=== PATIENT | male | born 1940 | race Caucasian/White ===

== ENCOUNTER → 2017-02-14 | Outpatient (CLI) | payer MEDICARE, BC ==
[~2017-02-14] MED LIST: ALBU8.5H8 INH; ASPI-621 PO; BUDE10.2 INH; FLUN25SP NAS; HYDR-3245 PO; LEVO75TA5 PO; LISI1TAB5 PO; PANT40TA5 PO; RIZA10TA5 PO; TAMS0.4C2 PO; TOPI100T8 PO; TROS20TA2 PO
[2017-02-14 12:10] LABS: HEMOGLOBIN 15.3 g/dL (13.7-18.0); WHITE BLOOD COUNT 6.7 x10^3/uL (3.4-10)
[2017-02-14 12:23] LABS: BLOOD UREA NITROGEN 16 mg/dL (7-18)
[2017-02-14 12:27] LABS: ASPARTATE AMINO TRANSFERASE 24 U/L (15-37)
== END | disposition home or self-care (01) ==
LOC: STAR 10:35
PROVIDERS: ATTEND Neurological Surgery
DX: Z01.818 Encounter for other preprocedural examination (principal); E65 Localized adiposity; M51.36 Other intervertebral disc degeneration, lumbar region; R94.31 Abnormal electrocardiogram [ECG] [EKG]; R79.1 Abnormal coagulation profile
CPT/HCPCS: 36415; 71020; 80053; 81003; 85025; 85610; 85730; 93005

== ENCOUNTER 2017-02-23 11:34 | Inpatient (IN) | payer MEDICARE, BC ==
[~2017-02-23] VITALS: Ht 172.7 cm; Wt 103.0 kg
[~2017-02-23 11:34] MED LIST changes: +BACITRACIN 50,000 UNIT ONE; +BUPIVACAINE 0.25% ONE; +BUPIVACAINE/PF 0.5% ONE; +EPINEPHRINE 1 MG/ML, 1ML ONE; +LIDOCAINE/PF 1%, 30ML ONE; +THROMBIN 5,000 UNIT VIAL TP ONE
[2017-02-23] MEDS ORDERED: LACTATED RINGERS 1,000 ML IV SCH (12:04)
[2017-02-23] MEDS ORDERED: VANCOMYCIN 1,000 MG ONE (12:08)
[2017-02-23 12:09] VITALS: BP 160/83
[2017-02-23] MEDS ORDERED: FENTANYL PF 250 MCG/5ML ONE ×2 (15:02→16:19)
[2017-02-23] MEDS ORDERED: MIDAZOLAM 1 MG/ML, 2ML ONE (15:02)
[2017-02-23] MEDS ORDERED: SUCCINYLCHOLINE 20 MG/ML, 10ML ONE (15:07)
[2017-02-23] MEDS ORDERED: ONDANSETRON 2MG/ML, 2ML ONE (15:07)
[2017-02-23] MEDS ORDERED: ROCURONIUM 10 MG/ML,10ML ONE (15:07)
[2017-02-23] MEDS ORDERED: DEXAMETHASONE 4 MG/ML, 1ML ONE (15:07)
[2017-02-23] MEDS ORDERED: PROPOFOL 10 MG/ML, 20ML ONE (15:07)
[2017-02-23] MEDS ORDERED: PIPERACILLIN/TAZO/PMX 3.375GM 50 ML ONE (15:24)
[2017-02-23] MEDS ORDERED: OXYcodone 5 MG/5 ML ORAL.SOL UDC PO PRN (16:30)
[2017-02-23] MEDS ORDERED: HYDROmorphone 1 MG/ML, 1ML IV PRN (16:30)
[2017-02-23] MEDS ORDERED: LABETALOL 5MG/ML, 20ML IV PRN (16:30)
[2017-02-23] MEDS ORDERED: MEPERIDINE/PF 25MG/0.5ML IVPush PRN (16:30)
[2017-02-23] MEDS ORDERED: ACETAMINOPHEN 325 MG TABLET PO PRN (16:30)
[2017-02-23] MEDS ORDERED: ONDANSETRON 2MG/ML, 2ML IVPush PRN ×2 (16:30→17:00)
[2017-02-23] MEDS ORDERED: PROMETHAZINE 25 MG/ML, 1ML IV PRN (16:30)
[2017-02-23] MEDS ORDERED: RIZATRIPTAN BENZOATE 10 MG PO PRN (16:30)
[2017-02-23] MEDS ORDERED: MIDAZOLAM 1 MG/ML, 2ML IV PRN (16:30)
[2017-02-23] MEDS ORDERED: hydrALAzine 20 MG/ML, 1ML IV PRN (16:30)
[2017-02-23] MEDS ORDERED: ALBUTEROL SULFATE 2.5 MG/3 ML NPPB PRN (16:30)
[2017-02-23] MEDS ORDERED: ACETAMINOPHEN 650 MG/20.3 ML UDC ONE (16:44)
[2017-02-23] MEDS ORDERED: FENTANYL PF 100 MCG/2ML ONE (16:44)
[2017-02-23] MEDS ORDERED: OXYcodone 5 MG/5 ML ORAL.SOL UDC ONE (16:44)
[2017-02-23] MEDS ORDERED: ACETAMINOPHEN 325 MG TABLET ONE (16:44)
[2017-02-23] MEDS: FENTANYL PF 100 MCG/2ML IV PRN ×2 (16:45→16:55)
[2017-02-23] MEDS ORDERED: OXYcodone/APAP 5/325MG TABLET PO PRN (17:00)
[2017-02-23] MEDS ORDERED: DIPHENHYDRAMINE 50 MG CAPSULE PO PRN (17:00)
[2017-02-23] MEDS ORDERED: HYDROmorphone 1 MG/ML, 1ML IVPush PRN (17:00)
[2017-02-23] MEDS ORDERED: BISACODYL 10 MG SUPP PR PRN (17:00)
[2017-02-23] MEDS ORDERED: PHARMACY MAY ADJ FOR RENAL FX MC PRN ×2 (17:00)
[2017-02-23] MEDS ORDERED: MELATONIN 3 MG TABLET PO PRN (17:00)
[2017-02-23] MEDS ORDERED: MAGNESIUM HYDROXIDE 8%, 30ML UDC PO PRN (17:00)
[2017-02-23] MEDS ORDERED: PROMETHAZINE 25 MG/ML, 1ML IM PRN (17:00)
[2017-02-23] MEDS ORDERED: HYDROcodone/APAP 5/325 TABLET PO PRN (17:00)
[2017-02-23] MEDS ORDERED: SENNA/DOCUSATE TABLET PO PRN (17:00)
[2017-02-23] MEDS ORDERED: METHOCARBAMOL 750 MG TABLET PO PRN (17:00)
[2017-02-23] MEDS ORDERED: DIPHENHYDRAMINE 50 MG/ML, 1ML IVPush PRN (17:00)
[2017-02-23] MEDS ORDERED: HYDROmorphone 2 MG/ML, 1ML ONE (17:15)
[2017-02-23] MEDS: HYDROcodone/APAP 10/325 MG TABLET PO PRN ×2 (18:30→23:28)
[2017-02-23 19:05] VITALS: BP 134/78
[2017-02-23] MEDS: CEFAZOLIN PMX 1GM/50ML 50 ML IVPB SCH (20:04)
[2017-02-23] MEDS: NS + 20MEQ KCL 1,000 ML IV SCH (20:04)
[2017-02-23] MEDS: SODIUM CHLORIDE FLUSH 10ML SYR IVF SCH (21:00)
[2017-02-23] MEDS: FLUNISOLIDE NAS SCH (21:00)
[2017-02-23] MEDS: TOPIRAMATE 100 MG TABLET PO SCH (23:28)
[2017-02-24 00:19] VITALS: BP 111/63
[2017-02-24] MEDS: CEFAZOLIN PMX 1GM/50ML 50 ML IVPB SCH (03:34)
[2017-02-24] MEDS: HYDROcodone/APAP 10/325 MG TABLET PO PRN ×3 (03:41→13:14)
[2017-02-24 04:47] VITALS: BP 126/64
[2017-02-24] MEDS: NS + 20MEQ KCL 1,000 ML IV SCH (05:30)
[2017-02-24 05:44] LABS: BASOPHILS # (AUTO) 0.02 x10^3/uL (0-0.1); BASOPHILS % (AUTO) 0 % (0-1); EOSINOPHILS # (AUTO) 0.01 x10^3/uL (0-0.4); EOSINOPHILS % (AUTO) 0 % (1-7); LYMPHOCYTES # (AUTO) 1.64 x10^3/uL (1-3.4); LYMPHOCYTES % (AUTO) 15 % (22-44); MD NO; MEAN CORPUSCULAR HEMOGLOBIN 32.4 pg (27.5-34.5); MEAN CORPUSCULAR HGB CONC 33.7 g/dL (33.2-36.2); MEAN CORPUSCULAR VOLUME 96.2 fL (81-97); MEAN PLATELET VOLUME 7.4 fL (7.4-10.4); MONOCYTES # (AUTO) 1.07 x10^3/uL (0.2-0.8); MONOCYTES % (AUTO) 10 % (2-9); NEUTROPHILS # (AUTO) 8.23 x10^3/uL (1.8-6.8); NEUTROPHILS % (AUTO) 75 % (42-75); PLATELET COUNT 222 x10^3/uL (130-400); RED BLOOD COUNT 3.91 x10^6/uL (4.38-5.82); RED CELL DISTRIBUTION WIDTH 13.9 % (9.4-14.8)
[2017-02-24 05:51] LABS: ANION GAP 7 mmol/L (5-15); CALCIUM 8.7 mg/dL (8.5-10.1); CHLORIDE 108 mmol/L (98-107); CREATININE 0.92 mg/dL (0.7-1.3)
[2017-02-24 07:00] VITALS: BP 122/62
[2017-02-24] MEDS ORDERED: LISINOPRIL 20 MG TABLET PO SCH (09:00)
[2017-02-24] MEDS ORDERED: TEMPLATE NON-FORMULARY MED. (Trospium Chloride 20 MG) PO SCH (09:00)
[2017-02-24] MEDS ORDERED: LEVOTHYROXINE 75 MCG TABLET PO SCH (09:00)
[2017-02-24] MEDS ORDERED: PANTOPROZOLE 40MG TABLET PO SCH (09:00)
[2017-02-24] MEDS ORDERED: TAMSULOSIN 0.4 MG CAP.ER.24H PO SCH (09:00)
[2017-02-24] MEDS ORDERED: HYDROCHLOROTHIAZIDE 12.5 MG CAPSULE PO SCH (09:00)
[2017-02-24] MEDS ORDERED: TEMPLATE NON-FORMULARY MED. (Budesonide/Formoterol Fumarate (Symbicort 160-4.5 Mcg Inhaler INH SCH (09:00)
[2017-02-24] MEDS: FLUNISOLIDE NAS SCH (09:00)
[2017-02-24] MEDS: TOPIRAMATE 100 MG TABLET PO SCH (09:07)
[2017-02-24] MEDS: SODIUM CHLORIDE FLUSH 10ML SYR IVF SCH (09:10)
[2017-02-24] MEDS ORDERED: HYDR-3307 PO (09:22)
[2017-02-24] MEDS ORDERED: DOXY100T PO (09:23)
[2017-02-24] MEDS ORDERED: METH750T87 PO (09:23)
[2017-02-24 14:08] VITALS: BP 117/76
[2017-02-24] MEDS ORDERED: SENN1TAB7 PO (14:21)
[2017-02-24] MEDS ORDERED: ENOXAPARIN 30 MG/0.3 ML SQ SCH (17:00)
== END 2017-02-24 14:42 | disposition home or self-care (01) | DRG 516 ==
LOC: OUT 11:34 → ORIP 16:32 → 4NOR 17:39 → DCLOUNGE 02-24 14:17
PROVIDERS: ADMIT Neurological Surgery; ATTEND Neurological Surgery
PROC: 01NB0ZZ Release Lumbar Nerve, Open Approach (ICD-10-PCS; principal; 2017-02-23 14:00)
DX: M48.062 Spinal stenosis, lumbar region with neurogenic claudication (principal); R71.0 Precipitous drop in hematocrit; J44.9 Chronic obstructive pulmonary disease, unspecified; M51.16 Intervertebral disc disorders with radiculopathy, lumbar region; K21.9 Gastro-esophageal reflux disease without esophagitis; N18.9 Chronic kidney disease, unspecified; Z86.73 Personal history of transient ischemic attack (TIA), and cerebral infarction without residual deficits; Z98.1 Arthrodesis status; Z90.49 Acquired absence of other specified parts of digestive tract; Z82.3 Family history of stroke; Z83.3 Family history of diabetes mellitus; Z83.49 Family history of other endocrine, nutritional and metabolic diseases; Z80.9 Family history of malignant neoplasm, unspecified; Z79.51 Long term (current) use of inhaled steroids; Z79.899 Other long term (current) drug therapy; Z79.82 Long term (current) use of aspirin
CPT/HCPCS: 36415; 72100; 80048; 85025; C1729; J0171; J0690; J1100; J2250; J2405; J2543; J2704; J3010; J3370; J3480; J3490; J0330; J7120

== ENCOUNTER → 2018-02-16 | Outpatient (CLI) | payer MEDICARE, BC ==
[~2018-02-16] MED LIST changes: -ASPI-621 PO; +ASPI81TA45 PO; -BACITRACIN 50,000 UNIT ONE; -BUPIVACAINE 0.25% ONE; -BUPIVACAINE/PF 0.5% ONE; +DOXY100T PO; -EPINEPHRINE 1 MG/ML, 1ML ONE; +HYDR-3307 PO; -LIDOCAINE/PF 1%, 30ML ONE; +METH750T87 PO; +SENN1TAB8 PO; -THROMBIN 5,000 UNIT VIAL TP ONE
== END | disposition home or self-care (01) ==
LOC: CFH 10:31
PROVIDERS: ATTEND Internal Medicine Geriatric Medicine
DX: Z12.2 Encounter for screening for malignant neoplasm of respiratory organs (principal); I25.10 Atherosclerotic heart disease of native coronary artery without angina pectoris; Z87.891 Personal history of nicotine dependence
CPT/HCPCS: G0297

== ENCOUNTER → 2018-03-09 | Outpatient (CLI) | payer MEDICARE, BC | END | disposition home or self-care (01) | LOC: PETCFH 13:28 | PROVIDERS: ATTEND Internal Medicine Geriatric Medicine | DX: R91.1 Solitary pulmonary nodule (principal); Z87.891 Personal history of nicotine dependence | CPT/HCPCS: 78815; A9552 ==

== ENCOUNTER 2018-03-24 09:50 | Day surgery (SDC) | payer MEDICARE, BC ==
[~2018-03-24] VITALS: Ht 172.7 cm; Wt 98.2 kg
[~2018-03-24 09:50] MED LIST changes: +LIDOCAINE-MPF 1%, 5ML ONE
[2018-03-24] MEDS ORDERED: SODIUM CHLORIDE 0.9% 1,000 ML IV SCH (11:00)
[2018-03-24 11:02] VITALS: BP 115/71
[2018-03-24] MEDS ORDERED: MIDAZOLAM 1 MG/ML, 5ML ONE (11:12)
[2018-03-24] MEDS ORDERED: FLUMAZENIL 0.1 MG/1 ML, 5ML ONE (11:12)
[2018-03-24] MEDS ORDERED: FENTANYL PF 100 MCG/2ML ONE (11:12)
[2018-03-24] MEDS ORDERED: NALOXONE 1 MG/ML, 2ML ONE (11:13)
== END 2018-03-24 13:00 | disposition home or self-care (01) ==
LOC: OUT 09:50 → EDSTATUS 11:30 → OUT 13:00
PROVIDERS: ATTEND Internal Medicine Geriatric Medicine
DX: R91.1 Solitary pulmonary nodule (principal); J44.9 Chronic obstructive pulmonary disease, unspecified; E03.9 Hypothyroidism, unspecified; G89.29 Other chronic pain; M10.9 Gout, unspecified; G43.909 Migraine, unspecified, not intractable, without status migrainosus; Z79.82 Long term (current) use of aspirin; Z79.899 Other long term (current) drug therapy; Z87.891 Personal history of nicotine dependence
CPT/HCPCS: 32400; 77012; 99156; 99157; J2250; J3010; J7030; J2310

== ENCOUNTER → 2018-05-25 | Outpatient (CLI) | payer MEDICARE, BC ==
[~2018-05-25] MED LIST changes: -LIDOCAINE-MPF 1%, 5ML ONE; +SENN-177 PO; -SENN1TAB8 PO
== END | disposition home or self-care (01) ==
LOC: CFH 11:55
PROVIDERS: ATTEND Nurse Practitioner
DX: J44.9 Chronic obstructive pulmonary disease, unspecified (principal); R91.1 Solitary pulmonary nodule; Z87.891 Personal history of nicotine dependence
CPT/HCPCS: 71250

== ENCOUNTER → 2018-08-23 | Outpatient (CLI) | payer MEDICARE, BC | END | disposition home or self-care (01) | LOC: CFH 12:13 | PROVIDERS: ATTEND Internal Medicine | DX: R91.1 Solitary pulmonary nodule (principal) | CPT/HCPCS: 71250 ==

== ENCOUNTER 2019-02-05 12:11 | Outpatient (CLI) | payer MEDICARE, BC ==
[~2019-02-05 12:11] MED LIST changes: -HYDR-3307 PO; +HYDR-36 PO; +LISI1TAB19 PO; -LISI1TAB5 PO
== END 2019-02-05 23:59 | disposition home or self-care (01) ==
LOC: CFH 12:11
PROVIDERS: ATTEND Internal Medicine
DX: R91.1 Solitary pulmonary nodule (principal); I70.0 Atherosclerosis of aorta; I25.10 Atherosclerotic heart disease of native coronary artery without angina pectoris; M51.34 Other intervertebral disc degeneration, thoracic region; Z87.891 Personal history of nicotine dependence
CPT/HCPCS: 71250

== ENCOUNTER 2019-11-21 13:39 | Inpatient (IN) | payer MEDICARE, BC ==
[~2019-11-21] VITALS: Ht 175.3 cm; Wt 96.0 kg
[~2019-11-21 13:39] MED LIST changes: +HYDR-3246 PO; -HYDR-36 PO; -LISI1TAB19 PO; +LISI1TAB39 PO; -PANT40TA5 PO; +PANT40TA6 PO
[2019-11-21] MEDS ORDERED: SODIUM CHLORIDE FLUSH 10ML SYR IVF ONE (14:00)
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
[2019-11-21 14:22] LABS: BASOPHILS # (AUTO) 0.04 x10^3/uL (0-0.1); BASOPHILS % (AUTO) 0 % (0-1); EOSINOPHILS # (AUTO) 0.41 x10^3/uL (0-0.4); EOSINOPHILS % (AUTO) 4 % (1-7); LYMPHOCYTES # (AUTO) 1.95 x10^3/uL (1-3.4); LYMPHOCYTES % (AUTO) 20 % (22-44); MD NO; MEAN CORPUSCULAR HEMOGLOBIN 32.4 pg (27.5-34.5); MEAN CORPUSCULAR HGB CONC 32.5 g/dL (33.2-36.2); MEAN PLATELET VOLUME 7.1 fL (7.4-10.4); MONOCYTES # (AUTO) 0.55 x10^3/uL (0.2-0.8); MONOCYTES % (AUTO) 6 % (2-9); NEUTROPHILS # (AUTO) 6.61 x10^3/uL (1.8-6.8); NEUTROPHILS % (AUTO) 69 % (42-75); PLATELET COUNT 216 x10^3/uL (130-400); RED BLOOD COUNT 4.94 x10^6/uL (4.38-5.82); RED CELL DISTRIBUTION WIDTH 14.7 % (9.4-14.8)
--- NOTE | 2019-11-21 14:30 | NUR ---
PT TO CT
[2019-11-21 14:31] LABS: ALBUMIN 3.7 g/dL (3.4-5.0); ANION GAP 7 mmol/L (5-15); CHLORIDE 107 mmol/L (98-107); CREATININE 1.09 mg/dL (0.7-1.3)
[2019-11-21 14:42] LABS: MICROSCOPIC NOT IND
[2019-11-21 14:46] LABS: ALANINE AMINOTRANSFERASE 43 U/L (12-78); ALKALINE PHOSPHATASE 77 U/L (45-117); BILIRUBIN,TOTAL 0.3 mg/dL (0.2-1.0); TOTAL PROTEIN 7.8 g/dL (6.4-8.2); TROPONIN I < 0.015 ng/mL (0.000-0.045)
[2019-11-21] MEDS ORDERED: SODIUM CHLORIDE 0.9% 1,000 ML IV ONE (14:59)
[2019-11-21] MEDS ORDERED: SODIUM CHLORIDE FLUSH 10ML SYR IVF PRN (15:00)
[2019-11-21] MEDS: SODIUM CHLORIDE 0.9% 1,000 ML IV SCH (15:05)
[2019-11-21 15:28] LABS: INTERNATIONAL NORMALIZED RATIO 1.04 (0.93-1.1); PROTHROMBIN TIME 10.7 Seconds (9.6-11.5)
[2019-11-21] MEDS ORDERED: METHOCARBAMOL 750 MG TABLET PO PRN (15:30)
[2019-11-21] MEDS ORDERED: LORazepam 2 MG/ML, 1ML IVPush PRN (15:30)
[2019-11-21] MEDS ORDERED: POLYETHYLENE GLYCOL 17 GM PACKET PO PRN (15:30)
[2019-11-21] MEDS ORDERED: BISACODYL 10 MG SUPP PR PRN (15:30)
[2019-11-21] MEDS ORDERED: ALBUTEROL HFA 90 MCG/SPRAY INH PRN (15:30)
[2019-11-21] MEDS ORDERED: MORPHINE SULFATE 4 MG/ML, 1ML ONE (16:32)
[2019-11-21] MEDS ORDERED: ONDANSETRON 2MG/ML, 2ML ONE (16:37)
[2019-11-21] MEDS: morphine SULFATE 10 MG/ML, 1ML IVPush PRN ×3 (16:39→22:06)
[2019-11-21] MEDS: ONDANSETRON 2MG/ML, 2ML IVPush PRN ×2 (16:39→23:00)
--- NOTE | 2019-11-21 16:41 | NUR ---
Platelets hung and being transfused, pt givne painmedications. Pt platelets verified at bedside by Galen BREWER and Chuyita BREWER
[2019-11-21 16:55] VITALS: BP 156/83
[2019-11-21 17:01] VITALS: BP 156/83
[2019-11-21 17:04] VITALS: BP 156/83
[2019-11-21 17:15] VITALS: BP 160/89
[2019-11-21] MEDS: LABETALOL 5MG/ML, 20ML IVPush PRN ×2 (17:22→20:41)
[2019-11-21] MEDS: ACETAMINOPHEN 325 MG TABLET PO PRN (17:32)
[2019-11-21] MEDS: OXYcodone IR 5MG TABLET PO PRN ×4 (17:33→23:42)
[2019-11-21 17:50] VITALS: BP 157/91
[2019-11-21] MEDS: ENALAPRILAT 1.25 MG/ML, 2ML IVPush PRN ×2 (18:17→23:16)
[2019-11-21 18:50] VITALS: BP 145/89
[2019-11-21] MEDS: RIZATRIPTAN 10MG TABLET PO PRN (20:42)
[2019-11-21] MEDS: FLUNISOLIDE NAS SCH (21:00)
[2019-11-21] MEDS: TOPIRAMATE 100 MG TABLET PO SCH (21:57)
[2019-11-21] MEDS: LEVETIRACETAM 500 MG TABLET PO SCH (22:05)
[2019-11-21] MEDS ORDERED: CALCIUM CARBONATE 500 MG TAB.CHEW PO PRN (23:30)
[2019-11-21] MEDS ORDERED: PANTOPRAZOLE 20MG TABLET PO ONE (23:30)
[2019-11-22] MEDS: LABETALOL 5MG/ML, 20ML IVPush PRN (01:05)
[2019-11-22 04:00] VITALS: BP 149/77
[2019-11-22] MEDS: SODIUM CHLORIDE 0.9% 1,000 ML IV SCH (04:11)
[2019-11-22] MEDS: OXYcodone IR 5MG TABLET PO PRN ×3 (04:20→19:41)
[2019-11-22] MEDS: RIZATRIPTAN 10MG TABLET PO PRN ×2 (04:20→06:56)
[2019-11-22 04:35] LABS: BASOPHILS # (AUTO) 0.03 x10^3/uL (0-0.1); BASOPHILS % (AUTO) 0 % (0-1); EOSINOPHILS # (AUTO) 0.05 x10^3/uL (0-0.4); EOSINOPHILS % (AUTO) 1 % (1-7); LYMPHOCYTES % (AUTO) 13 % (22-44); MD NO; MEAN CORPUSCULAR HEMOGLOBIN 32.5 pg (27.5-34.5); MEAN CORPUSCULAR HGB CONC 32.5 g/dL (33.2-36.2); MEAN PLATELET VOLUME 7.5 fL (7.4-10.4); MONOCYTES # (AUTO) 0.52 x10^3/uL (0.2-0.8); MONOCYTES % (AUTO) 5 % (2-9); NEUTROPHILS # (AUTO) 7.83 x10^3/uL (1.8-6.8); NEUTROPHILS % (AUTO) 81 % (42-75); PLATELET COUNT 256 x10^3/uL (130-400); RED BLOOD COUNT 4.68 x10^6/uL (4.38-5.82); RED CELL DISTRIBUTION WIDTH 14.4 % (9.4-14.8)
[2019-11-22 04:48] LABS: CALCIUM 9.3 mg/dL (8.5-10.1); CHLORIDE 107 mmol/L (98-107)
[2019-11-22 04:53] LABS: ALANINE AMINOTRANSFERASE 35 U/L (12-78); ALBUMIN 3.5 g/dL (3.4-5.0); ALKALINE PHOSPHATASE 68 U/L (45-117); ANION GAP 5 mmol/L (5-15); BILIRUBIN,TOTAL 0.4 mg/dL (0.2-1.0); CREATININE 0.89 mg/dL (0.7-1.3); TOTAL PROTEIN 7.3 g/dL (6.4-8.2)
[2019-11-22] MEDS: PANTOPRAZOLE 40MG TABLET PO SCH (06:42)
[2019-11-22] MEDS: morphine SULFATE 10 MG/ML, 1ML IVPush PRN ×4 (07:19→21:54)
[2019-11-22] MEDS: DEXAMETHASONE 4 MG/ML, 1ML IVPush SCH ×3 (08:41→19:41)
[2019-11-22] MEDS: ONDANSETRON 2MG/ML, 2ML IVPush PRN (08:44)
[2019-11-22] MEDS: FLUTICASONE/VILANTEROL 100-25MCG/INH INH SCH (09:00)
[2019-11-22] MEDS: FLUNISOLIDE NAS SCH ×2 (09:00→20:48)
[2019-11-22] MEDS: TEMPLATE NON-FORMULARY MED. (Trospium Chloride 20 MG) PO SCH (09:00)
[2019-11-22] MEDS: LEVOTHYROXINE 75 MCG TABLET PO SCH (10:34)
[2019-11-22] MEDS: HYDROCHLOROTHIAZIDE 12.5 MG CAPSULE PO SCH (10:34)
[2019-11-22] MEDS: SENNA/DOCUSATE TABLET PO SCH (10:34)
[2019-11-22] MEDS: LISINOPRIL 20 MG TABLET PO SCH (10:35)
[2019-11-22] MEDS: ACETAMINOPHEN 325 MG TABLET PO PRN (10:35)
[2019-11-22] MEDS: LEVETIRACETAM 500 MG TABLET PO SCH ×2 (10:35→20:45)
[2019-11-22] MEDS: TAMSULOSIN 0.4 MG CAP.ER.24H PO SCH (10:35)
[2019-11-22] MEDS: TOPIRAMATE 100 MG TABLET PO SCH ×2 (10:36→20:45)
[2019-11-22] MEDS ORDERED: PROMETHAZINE 25 MG/ML, 1ML IM PRN (15:00)
[2019-11-23] MEDS: OXYcodone IR 5MG TABLET PO PRN ×4 (00:10→14:32)
[2019-11-23] MEDS: DEXAMETHASONE 4 MG/ML, 1ML IVPush SCH ×4 (02:31→20:45)
[2019-11-23 04:00] VITALS: BP 132/64
[2019-11-23] MEDS: PANTOPRAZOLE 40MG TABLET PO SCH (07:52)
[2019-11-23] MEDS: SENNA/DOCUSATE TABLET PO SCH (08:25)
[2019-11-23] MEDS: TAMSULOSIN 0.4 MG CAP.ER.24H PO SCH (08:25)
[2019-11-23] MEDS: LISINOPRIL 20 MG TABLET PO SCH (08:25)
[2019-11-23] MEDS: LEVOTHYROXINE 75 MCG TABLET PO SCH (08:25)
[2019-11-23] MEDS: HYDROCHLOROTHIAZIDE 12.5 MG CAPSULE PO SCH (08:25)
[2019-11-23] MEDS: LEVETIRACETAM 500 MG TABLET PO SCH ×2 (08:25→20:45)
[2019-11-23] MEDS: TEMPLATE NON-FORMULARY MED. (Trospium Chloride 20 MG) PO SCH (08:26)
[2019-11-23] MEDS: FLUNISOLIDE NAS SCH ×2 (08:26→20:45)
[2019-11-23] MEDS: TOPIRAMATE 100 MG TABLET PO SCH ×2 (08:50→20:45)
[2019-11-23] MEDS: FLUTICASONE/VILANTEROL 100-25MCG/INH INH SCH (08:50)
[2019-11-23] MEDS: ENALAPRILAT 1.25 MG/ML, 2ML IVPush PRN (10:14)
[2019-11-23] MEDS: ACETAMINOPHEN 325 MG TABLET PO PRN ×2 (10:15→17:11)
[2019-11-23] MEDS: ONDANSETRON 2MG/ML, 2ML IVPush PRN (10:55)
[2019-11-23 16:25] VITALS: BP 159/85
[2019-11-23 16:54] VITALS: BP 146/86
[2019-11-23] MEDS ORDERED: LABETALOL 5MG/ML, 20ML IVPush PRN (17:30)
[2019-11-23] MEDS ORDERED: ENALAPRILAT 1.25 MG/ML, 2ML IVPush PRN (17:30)
[2019-11-23 18:31] VITALS: BP 157/93
[2019-11-23 20:44] VITALS: BP 137/88
[2019-11-23] MEDS: AMLODIPINE 2.5 MG TABLET PO SCH (20:45)
[2019-11-24 01:08] VITALS: BP 136/80
[2019-11-24] MEDS: DEXAMETHASONE 4 MG/ML, 1ML IVPush SCH ×2 (02:22→08:35)
[2019-11-24 07:32] LABS: BASOPHILS # (AUTO) 0.01 x10^3/uL (0-0.1); BASOPHILS % (AUTO) 0 % (0-1); EOSINOPHILS % (AUTO) 0 % (1-7); LYMPHOCYTES # (AUTO) 1.09 x10^3/uL (1-3.4); LYMPHOCYTES % (AUTO) 10 % (22-44); MD NO; MEAN CORPUSCULAR HEMOGLOBIN 32.5 pg (27.5-34.5); MEAN CORPUSCULAR HGB CONC 32.6 g/dL (33.2-36.2); MEAN PLATELET VOLUME 7.6 fL (7.4-10.4); MONOCYTES # (AUTO) 0.51 x10^3/uL (0.2-0.8); MONOCYTES % (AUTO) 5 % (2-9); NEUTROPHILS # (AUTO) 9.65 x10^3/uL (1.8-6.8); NEUTROPHILS % (AUTO) 86 % (42-75); PLATELET COUNT 251 x10^3/uL (130-400); RED BLOOD COUNT 5.03 x10^6/uL (4.38-5.82); RED CELL DISTRIBUTION WIDTH 14.3 % (9.4-14.8)
[2019-11-24 07:40] LABS: CALCIUM 9.6 mg/dL (8.5-10.1); CREATININE 1.01 mg/dL (0.7-1.3)
[2019-11-24 07:43] VITALS: BP 113/69
[2019-11-24 07:46] LABS: ANION GAP 9 mmol/L (5-15); CHLORIDE 108 mmol/L (98-107)
[2019-11-24] MEDS: LEVETIRACETAM 500 MG TABLET PO SCH ×2 (08:35→20:55)
[2019-11-24] MEDS: FLUTICASONE/VILANTEROL 100-25MCG/INH INH SCH (08:35)
[2019-11-24] MEDS: AMLODIPINE 2.5 MG TABLET PO SCH (08:35)
[2019-11-24] MEDS: HYDROCHLOROTHIAZIDE 12.5 MG CAPSULE PO SCH (08:35)
[2019-11-24] MEDS: TOPIRAMATE 100 MG TABLET PO SCH ×2 (08:36→20:55)
[2019-11-24] MEDS: PANTOPRAZOLE 40MG TABLET PO SCH (08:36)
[2019-11-24] MEDS: LISINOPRIL 20 MG TABLET PO SCH (08:36)
[2019-11-24] MEDS: TAMSULOSIN 0.4 MG CAP.ER.24H PO SCH (08:36)
[2019-11-24] MEDS: LEVOTHYROXINE 75 MCG TABLET PO SCH (08:36)
[2019-11-24] MEDS: SENNA/DOCUSATE TABLET PO SCH (08:36)
[2019-11-24 12:45] VITALS: BP 148/95
[2019-11-24] MEDS: ACETAMINOPHEN 325 MG TABLET PO PRN (12:57)
[2019-11-24] MEDS: OXYcodone IR 5MG TABLET PO PRN (12:58)
[2019-11-24] MEDS ORDERED: OMNIPAQUE 350 MG/ML, 75ML BOTTLE ONE (14:54)
[2019-11-24 16:30] VITALS: BP 137/81
[2019-11-24 19:06] VITALS: BP 116/72
[2019-11-24] MEDS: AMLODIPINE 5 MG TABLET PO SCH (20:55)
[2019-11-25 00:40] VITALS: BP 124/73
[2019-11-25 06:56] VITALS: BP 145/90
[2019-11-25] MEDS: LEVETIRACETAM 500 MG TABLET PO SCH ×2 (09:56→20:29)
[2019-11-25] MEDS: LISINOPRIL 20 MG TABLET PO SCH (09:56)
[2019-11-25] MEDS: TAMSULOSIN 0.4 MG CAP.ER.24H PO SCH (09:56)
[2019-11-25] MEDS: AMLODIPINE 5 MG TABLET PO SCH ×2 (09:57→20:29)
[2019-11-25] MEDS: HYDROCHLOROTHIAZIDE 12.5 MG CAPSULE PO SCH (09:57)
[2019-11-25] MEDS: LEVOTHYROXINE 75 MCG TABLET PO SCH (09:57)
[2019-11-25] MEDS: PANTOPRAZOLE 40MG TABLET PO SCH (09:57)
[2019-11-25] MEDS: TOPIRAMATE 100 MG TABLET PO SCH ×2 (09:57→20:29)
[2019-11-25] MEDS: SENNA/DOCUSATE TABLET PO SCH (09:58)
[2019-11-25] MEDS: FLUTICASONE/VILANTEROL 100-25MCG/INH INH SCH (09:58)
[2019-11-25 11:11] VITALS: BP 146/84
[2019-11-25 12:36] VITALS: BP 142/89
[2019-11-25 17:45] VITALS: BP 153/95
[2019-11-25] MEDS: LABETALOL 100 MG TABLET PO SCH (17:48)
[2019-11-25 20:23] VITALS: BP 135/85
[2019-11-26] VITALS (9 sets, daily range): BP systolic 126–156; BP diastolic 61–87
[2019-11-26] MEDS: LABETALOL 100 MG TABLET PO SCH ×2 (06:27→18:37)
[2019-11-26] MEDS: PANTOPRAZOLE 40MG TABLET PO SCH (06:27)
[2019-11-26] MEDS: FLUTICASONE/VILANTEROL 100-25MCG/INH INH SCH (09:00)
[2019-11-26] MEDS: LEVOTHYROXINE 75 MCG TABLET PO SCH ×2 (09:23→09:35)
[2019-11-26] MEDS ORDERED: LEVOTHYROXINE 75 MCG TABLET ONE (09:30)
[2019-11-26] MEDS: SENNA/DOCUSATE TABLET PO SCH (09:34)
[2019-11-26] MEDS: LISINOPRIL 20 MG TABLET PO SCH (09:34)
[2019-11-26] MEDS: LEVETIRACETAM 500 MG TABLET PO SCH ×2 (09:34→20:50)
[2019-11-26] MEDS: HYDROCHLOROTHIAZIDE 12.5 MG CAPSULE PO SCH (09:34)
[2019-11-26] MEDS: TAMSULOSIN 0.4 MG CAP.ER.24H PO SCH (09:35)
[2019-11-26] MEDS: TOPIRAMATE 100 MG TABLET PO SCH ×2 (09:35→20:50)
[2019-11-26] MEDS: AMLODIPINE 5 MG TABLET PO SCH ×2 (09:35→20:50)
[2019-11-26] MEDS ORDERED: GADOTERATE 10 MMOL/20 ML SYR ONE (16:35)
[2019-11-26] MEDS: DEXTROSE 5% 1,000 ML IV SCH (18:38)
[2019-11-26] MEDS: RIZATRIPTAN 10MG TABLET PO PRN (23:23)
[2019-11-27] VITALS (7 sets, daily range): BP systolic 107–149; BP diastolic 66–83
[2019-11-27] MEDS: ONDANSETRON 2MG/ML, 2ML IVPush PRN (04:03)
[2019-11-27] MEDS: LABETALOL 100 MG TABLET PO SCH ×2 (06:13→17:34)
[2019-11-27] MEDS: PANTOPRAZOLE 40MG TABLET PO SCH (06:13)
[2019-11-27] MEDS: ACETAMINOPHEN 325 MG TABLET PO PRN ×3 (06:25→17:26)
[2019-11-27] MEDS: FLUTICASONE/VILANTEROL 100-25MCG/INH INH SCH (09:00)
[2019-11-27] MEDS: SENNA/DOCUSATE TABLET PO SCH (09:18)
[2019-11-27] MEDS: LEVETIRACETAM 500 MG TABLET PO SCH ×2 (09:18→21:08)
[2019-11-27] MEDS: TOPIRAMATE 100 MG TABLET PO SCH ×2 (09:18→21:08)
[2019-11-27] MEDS: TAMSULOSIN 0.4 MG CAP.ER.24H PO SCH (09:20)
[2019-11-27] MEDS: AMLODIPINE 5 MG TABLET PO SCH ×2 (09:36→21:08)
[2019-11-27] MEDS: LISINOPRIL 20 MG TABLET PO SCH (09:36)
[2019-11-27] MEDS: HYDROCHLOROTHIAZIDE 12.5 MG CAPSULE PO SCH (09:36)
[2019-11-27] MEDS: DEXTROSE 5% 1,000 ML IV SCH (14:00)
[2019-11-28 01:24] VITALS: BP 112/66
[2019-11-28] MEDS: ACETAMINOPHEN 325 MG TABLET PO PRN (02:33)
[2019-11-28] MEDS: DEXTROSE 5% 1,000 ML IV SCH ×2 (03:41→16:30)
[2019-11-28] MEDS: LABETALOL 100 MG TABLET PO SCH ×2 (06:03→17:37)
[2019-11-28] MEDS: PANTOPRAZOLE 40MG TABLET PO SCH (06:03)
[2019-11-28] MEDS: LEVOTHYROXINE 75 MCG TABLET PO SCH (06:03)
[2019-11-28 06:19] VITALS: BP 108/63
[2019-11-28] MEDS: LEVETIRACETAM 500 MG TABLET PO SCH (08:13)
[2019-11-28] MEDS: HYDROCHLOROTHIAZIDE 12.5 MG CAPSULE PO SCH (08:13)
[2019-11-28] MEDS: TOPIRAMATE 100 MG TABLET PO SCH (08:13)
[2019-11-28] MEDS: AMLODIPINE 5 MG TABLET PO SCH (08:13)
[2019-11-28] MEDS: SENNA/DOCUSATE TABLET PO SCH (08:13)
[2019-11-28] MEDS: TAMSULOSIN 0.4 MG CAP.ER.24H PO SCH (08:13)
[2019-11-28] MEDS: LISINOPRIL 20 MG TABLET PO SCH (08:13)
[2019-11-28] MEDS: FLUTICASONE/VILANTEROL 100-25MCG/INH INH SCH (08:19)
[2019-11-28 12:51] VITALS: BP 111/66
[2019-11-28] MEDS ORDERED: AMLO-150 PO (13:32)
[2019-11-28] MEDS ORDERED: LEVO75TA PO (13:32)
[2019-11-28] MEDS ORDERED: LABE100T6 PO (13:32)
[2019-11-28] MEDS ORDERED: LEVE500T53 PO (13:32)
== END 2019-11-28 18:37 | DRG 82 ==
LOC: ED 14:58 → EDIP 14:59 → ED 15:03 → CCU 16:51 → 4WST 11-23 16:10
PROVIDERS: ADMIT Internal Medicine; ATTEND Family Medicine
PROC: 30233R1 Transfusion of Nonautologous Platelets into Peripheral Vein, Percutaneous Approach (ICD-10-PCS; principal; 2019-11-21)
DX: S06.359A Traumatic hemorrhage of left cerebrum with loss of consciousness of unspecified duration, initial encounter (principal); G93.6 Cerebral edema; D69.1 Qualitative platelet defects; Y92.410 Unspecified street and highway as the place of occurrence of the external cause; E78.5 Hyperlipidemia, unspecified; E03.9 Hypothyroidism, unspecified; I10 Essential (primary) hypertension; J44.9 Chronic obstructive pulmonary disease, unspecified; N40.0 Benign prostatic hyperplasia without lower urinary tract symptoms; Z79.82 Long term (current) use of aspirin; Z80.52 Family history of malignant neoplasm of bladder; Z82.0 Family history of epilepsy and other diseases of the nervous system; Z82.3 Family history of stroke; Z82.49 Family history of ischemic heart disease and other diseases of the circulatory system; Z87.891 Personal history of nicotine dependence; Z96.641 Presence of right artificial hip joint; V49.9XXA Car occupant (driver) (passenger) injured in unspecified traffic accident, initial encounter; Y93.89 Activity, other specified; Y92.89 Other specified places as the place of occurrence of the external cause; Y99.8 Other external cause status; D75.89 Other specified diseases of blood and blood-forming organs
CPT/HCPCS: 36415; 70450; 70496; 70553; 71045; 80048; 80053; 81003; 83735; 84484; 85025; 85610; 85730; 86850; 86900; 87081; 93005; 94640; G0378; J1100; J2405; J2550; J7070; Q9967; 92523-GN; A9575; J2270; J7030; P9035

== ENCOUNTER → 2020-01-14 | Outpatient (CLI) | payer MEDICARE, BC ==
[~2020-01-14] MED LIST changes: +AMLO-150 PO; +LABE100T6 PO; +LEVE500T53 PO; +LEVO75TA PO
== END | disposition home or self-care (01) ==
LOC: CFH 15:01
PROVIDERS: ATTEND Physician Assistant Surgical
DX: S06.5X0D Traumatic subdural hemorrhage without loss of consciousness, subsequent encounter (principal); X58.XXXD Exposure to other specified factors, subsequent encounter
CPT/HCPCS: 70450